=== PATIENT | female | born 1970 | race African-American/Black ===

== ENCOUNTER 2017-06-11 13:45 | Emergency (ER) | payer OTHER ==
[~2017-06-11] VITALS: Ht 165.1 cm; Wt 88.0 kg
[~2017-06-11 13:45] MED LIST: ALBU6.7H INH; ZITH250T PO
[2017-06-11 14:10] VITALS: BP 147/97; PULSE 67; RESP 16; TEMP 98.9; O2SAT 100
[2017-06-11] MEDS ORDERED: LIDO1PAD52 TOPICAL (15:18)
[2017-06-11] MEDS ORDERED: BACL10TA PO (15:18)
--- NOTE | 2017-06-11 15:25 | PD ---
HPI Chief Complaint: Back/ Neck Pain or Injury Time Seen by Provider: 15:12 Travel History International Travel<30 days: No Contact w/Intl Traveler<30days: No Traveled to known affect area: No History of Present Illness HPI 47-year-old female presents for evaluation of left-sided lower back pain. Symptoms started this morning when she was pushing her bed. The pain is a sharp pain which is constant, worse with movement. Denies any radicular symptoms, abdominal pain, nausea or vomiting, or bladder incontinence, saddle anesthesia. She has no other complaints at this time. [facility] Past Medical History Diminished Hearing: No Immunizations Current: Yes Influenza Vaccination: No ?: Not Menopausal: Yes Tubal Ligation: Yes Social History Alcohol Use: No Tobacco Use: No Substance Use: No Allergies-Medications (Allergen,Severity, Reaction): Coded Allergies: ampicillin (Unverified Allergy, Severe, Rash, 06/11/17) aspirin (Unverified Allergy, Severe, hives, 06/11/17) ibuprofen (Unverified Allergy, Severe, hives, 06/11/17) Reported Meds & Prescriptions Reported Meds & Active Scripts Active Baclofen 10 Mg Tab 10 Mg PO TID 10 Days Lidocaine Patch 12 HR (Lidocaine) 5 % Patch 1 Patch TOPICAL DAILY PRN Remove patch after 12 hours Proventil Hfa (Albuterol Sulfate) 6.7 Gm Aero 2 Puff INH Q4 PRN * SHAKE WELL BEFORE USE * Zithromax Z-Angel (Azithromycin) 250 Mg Tab 250 Mg PO DIRECTED 5 Days 500 MG (2 TABLETS) PO ON DAY 1, THEN 250 MG (1 TABLET) PO ON DAYS 2 TO 5. Review of Systems Except as stated in HPI: all other systems reviewed are Neg Physical Exam Narrative GENERAL: Well-developed well-nourished female in no acute distress SKIN: Warm and dry. No rash, no bruising or soft tissue swelling. HEAD: Atraumatic. Normocephalic. EYES: Pupils equal and round. No scleral icterus. No injection or drainage. ENT: No nasal bleeding or discharge. Mucous membranes pink and moist. NECK: Trachea midline. No JVD. CARDIOVASCULAR: Regular rate and rhythm. No murmur appreciated. RESPIRATORY: No accessory muscle use. Clear to auscultation. Breath sounds equal bilaterally. GASTROINTESTINAL: Abdomen soft, non-tender, nondistended. Hepatic and splenic margins not palpable. MUSCULOSKELETAL: No obvious deformities. There is some tenderness to palpation to the left lumbar paravertebral musculature. No tenderness to palpation along the thoracic or lumbar midline. 5 out of 5 muscle strength in the lower extremities bilaterally. NEUROLOGICAL: Awake and alert. No obvious cranial nerve deficits. Motor grossly within normal limits. Normal speech. Data Data Last Documented VS Vital Signs Date Time Temp Pulse Resp B/P (MAP) Pulse Ox O2 Delivery O2 Flow Rate FiO2 06/11/17 14:10 98.9 67 16 147/97 (114) 100 Orders Orders Orphenadrine Inj (Norflex Inj) (06/11/17 15:30) Ed Discharge Order (06/11/17 15:17) Acetaminophen (Tylenol) (06/11/17 15:30) [facility] Medical Decision Making Medical Screen Exam Complete: Yes Emergency Medical Condition: Yes Medical Record Reviewed: Yes Differential Diagnosis Lumbar strain, spasm, herniated nucleus pulposus, renal stone Narrative Course Examination and history are consistent with lumbar strain. The patient is allergic to ibuprofen. She will be treated with a short course of muscle relaxants, acetaminophen, Lidoderm patches. Diagnosis Primary Impression: Lumbar strain Additional Instructions: Medication as prescribed. Do not drive or drink alcohol when taking baclofen. Avoid strenuous activity, heavy lifting. Follow-up with primary care physician and return for any emergent medical conditions. Med/Other Pt SpecificInfo: Prescription(s) given Scripts Baclofen (Baclofen) 10 Mg Tab 10 MG PO TID for Muscle Spasm for 10 Days, TAB 0 Refills Prov: Jessica Hough MD 06/11/17 Lidocaine Patch 12 HR (Lidocaine Patch 12 HR) 5 % Patch 1 PATCH TOPICAL DAILY Y for PAIN, #1 BOX 0 Refills Remove patch after 12 hours Prov: Jessica Hough MD 06/11/17 Disposition: 01 DISCHARGE HOME Condition: Stable Rich Ken Jun 11, 2017 15:25
[2017-06-11] MEDS ORDERED: ACETAMINOPHEN 325 MG TAB PO ONE (15:30)
[2017-06-11] MEDS ORDERED: ORPHENADRINE INJ 60 MG/2 ML AMP IM ONE (15:30)
== END 2017-06-11 15:49 | disposition home or self-care (01) ==
LOC: PHEFT 13:45
DX: S39.012A Strain of muscle, fascia and tendon of lower back, initial encounter (principal); X50.0XXA Overexertion from strenuous movement or load, initial encounter
CPT/HCPCS: 96372; 99284; J2360